=== PATIENT | female | born 1955 | race Caucasian/White ===

== ENCOUNTER 2017-12-06 12:14 | Outpatient (CLI) | payer OTHER | END 2017-12-06 12:15 | disposition home or self-care (01) | LOC: BICMAMMO 12:14 | PROVIDERS: ATTEND Family Medicine | DX: Z12.31 Encounter for screening mammogram for malignant neoplasm of breast (principal) | CPT/HCPCS: 77063; 77067 ==

== ENCOUNTER 2018-07-06 11:27 | Outpatient (CLI) | payer OTHER ==
--- NOTE | 2018-07-06 12:28 | RAD ---
RIGHT HAND THREE VIEWS: History: 62-year-old female with history of right hand pain. FINDINGS: Mild degenerative changes. No fracture or dislocation. IMPRESSION: Degenerative changes without fracture or dislocation. POS: TPC
== END 2018-07-06 11:28 | disposition home or self-care (01) ==
LOC: RAD 11:27
PROVIDERS: ATTEND Family Medicine
DX: M79.641 Pain in right hand (principal); M19.041 Primary osteoarthritis, right hand

== ENCOUNTER 2019-03-29 12:18 | Outpatient (CLI) | payer OTHER ==
--- NOTE | 2019-03-29 12:53 | MMO ---
Bilateral MAMMO Bilat Screen [facility]. CLINICAL HISTORY: Patient is 63 years old and is seen for screening. The patient has no family history of breast cancer. The patient has no personal history of cancer. The patient has a history of bilateral Excisional Biopsy in More than 10 ye - benign. VIEWS: The views performed were: bilateral craniocaudal with tomosynthesis and bilateral mediolateral oblique with tomosynthesis. FILMS COMPARED: The present examination has been compared to prior imaging studies performed at [facility] on 08/30/2014, 10/14/2015, 11/05/2016 and 12/06/2017. MAMMOGRAM FINDINGS: There are scattered fibroglandular densities. There are stable benign appearing calcifications seen in both breasts. There are no suspicious masses, suspicious calcifications, or new areas of architectural distortion. IMPRESSION: THERE IS NO MAMMOGRAPHIC EVIDENCE OF MALIGNANCY. A ROUTINE FOLLOW-UP MAMMOGRAM IN 1 YEAR IS RECOMMENDED. THE RESULTS OF THIS EXAM WERE SENT TO THE PATIENT. ACR BI-RADS Category 2 - Benign finding MAMMOGRAPHY NOTE: 1. A negative mammogram report should not delay a biopsy if a dominant of clinically suspicious mass is present. 2. Approximately 10% to 15% of breast cancers are not detected by mammography. 3. Adenosis and dense breasts may obscure an underlying neoplasm.
== END 2019-03-29 12:19 | disposition home or self-care (01) ==
LOC: BICMAMMO 12:18
PROVIDERS: ATTEND Family Medicine
DX: Z12.31 Encounter for screening mammogram for malignant neoplasm of breast (principal); Z91.89 Other specified personal risk factors, not elsewhere classified
CPT/HCPCS: 77063; 77067

== ENCOUNTER 2019-10-13 20:30 | Outpatient (CLI) | payer MEDICARE, OTHER | END 2019-10-13 20:31 | disposition home or self-care (01) | LOC: SLEEPLAB 20:30 | PROVIDERS: ATTEND Family Medicine | DX: G47.33 Obstructive sleep apnea (adult) (pediatric) (principal); E66.9 Obesity, unspecified; Z68.41 Body mass index [BMI] 40.0-44.9, adult | CPT/HCPCS: 95811 ==

== ENCOUNTER 2020-04-11 14:08 | Outpatient (CLI) | payer MEDICARE, OTHER ==
--- NOTE | 2020-04-11 14:37 | MMO ---
Bilateral MAMMO Bilat Screen [facility]. CLINICAL HISTORY: Patient is 64 years old and is seen for screening. The patient has no family history of breast cancer. The patient has no personal history of cancer. The patient has a history of bilateral Excisional Biopsy in More than 10 ye - benign. VIEWS: The views performed were: bilateral craniocaudal with tomosynthesis and bilateral mediolateral oblique with tomosynthesis. FILMS COMPARED: The present examination has been compared to prior imaging studies performed at [facility] on 10/14/2015, 11/05/2016, 12/06/2017 and 03/29/2019. This study has been interpreted with the assistance of computer-aided detection. MAMMOGRAM FINDINGS: There are scattered fibroglandular densities. There are benign appearing calcifications seen in both breasts. There are no suspicious masses, suspicious calcifications, or new areas of architectural distortion. IMPRESSION: THERE IS NO MAMMOGRAPHIC EVIDENCE OF MALIGNANCY. A ROUTINE FOLLOW-UP MAMMOGRAM IN 1 YEAR IS RECOMMENDED. THE RESULTS OF THIS EXAM WERE SENT TO THE PATIENT. ACR BI-RADS Category 2 - Benign finding MAMMOGRAPHY NOTE: 1. A negative mammogram report should not delay a biopsy if a dominant of clinically suspicious mass is present. 2. Approximately 10% to 15% of breast cancers are not detected by mammography. 3. Adenosis and dense breasts may obscure an underlying neoplasm. Reported by: ALEXA DAILY MD Electonically Signed: [id number]
== END 2020-04-11 14:09 | disposition home or self-care (01) ==
LOC: BICMAMMO 14:08
PROVIDERS: ATTEND Family Medicine
DX: Z12.31 Encounter for screening mammogram for malignant neoplasm of breast (principal); Z91.89 Other specified personal risk factors, not elsewhere classified
CPT/HCPCS: 77063; 77067

== ENCOUNTER 2020-04-19 10:29 | Outpatient (CLI) | payer MEDICARE, OTHER ==
--- NOTE | 2020-04-19 11:34 | RAD ---
XR Hips Bilat 2 View INDICATION: 64-year-old female with bilateral hip pain COMPARISON: October 15, 2015 FINDINGS: Right hip: Very minimal osteophytosis is seen along the margin of the acetabulum, slightly more prono unced than on the prior exam. Mild enthesopathic changes seen off the right greater trochanter. No acute fracture is evident. Small phlebolith is seen within the right hemipelvis. Left hip: There is mild degenerative change of the left hip which is relatively stable to the compari son examination. No acute fracture is evident. IMPRESSION: 1. Minimal to mild progression of osteoarthrosis involving the right hip. Stable osteoarthrosis of th e left hip.
--- NOTE | 2020-04-19 11:35 | RAD ---
EXAM: XR Sacroiliac Joints >=3 View DATE: 04/19/2020 12:00 AM INDICATION: Severe SI joint pain for the last 2-3 months COMPARISON: None. FINDING: No periarticular erosive change is evident. There is mild degenerative change of both SI vandana ints. The sacral arcs are in continuity. No acute fractures evident. Small phleboliths seen within the right hemipelvis. IMPRESSION:Mild SI joint degenerative change.
--- NOTE | 2020-04-19 12:12 | BD ---
BONE DENSITOMETRY: Date: 04/19/2020 HISTORY: Postmenopausal screening. FINDINGS: Lumbar Spine: BMD (g/cm2) L1 0.750 T-Score: -2.2 L2 0.815 T-Score: -1.9 L3 0.777 T-Score: -2.8 L4 0.844 T-Score: -2.0 Total 0.800 T-Score: -2.2 Femoral Neck: 0.559 T-Score: -2.6 Total Femur: 0.815 T-Score: -1.0 IMPRESSION: 1. Bone mineral density of the femoral neck indicates osteoporosis. 2. Bone mineral density of the lumbar spine indicates osteopenia. POS: AH
== END 2020-04-19 10:30 | disposition home or self-care (01) ==
LOC: BICMAMMO 10:29
PROVIDERS: ATTEND Internal Medicine Rheumatology
DX: Z13.820 Encounter for screening for osteoporosis (principal); M25.551 Pain in right hip; M25.552 Pain in left hip; M46.1 Sacroiliitis, not elsewhere classified; M47.898 Other spondylosis, sacral and sacrococcygeal region; M16.0 Bilateral primary osteoarthritis of hip; M81.0 Age-related osteoporosis without current pathological fracture; M85.88 Other specified disorders of bone density and structure, other site; E55.9 Vitamin D deficiency, unspecified; M25.50 Pain in unspecified joint
CPT/HCPCS: 36415; 72202; 73521; 77080; 80053; 81374; 82306; 83520; 83970; 84550; 85025; 85652; 86140; 86200; 86225; 86235; 86256; 86334

== ENCOUNTER 2020-09-24 08:08 | Outpatient (CLI) | payer MEDICARE, OTHER ==
--- NOTE | 2020-09-24 09:04 | CT ---
CT abdomen and pelvis with IV and oral contrast HISTORY: Abdominal pain. Diarrhea. COMPARISON: 12/04/2016. FINDINGS: Lung bases are clear. The gallbladder is surgically absent. The liver, spleen, kidneys, adr enal glands, and pancreas have a normal CT appearance. No enlarged lymph nodes or free fluid. No evidence of bowel obstruction or inflammation. The appendix and uterus are surgically absent. There is calcification throughout the arterial structures. Mild degenerative changes lumbar spine and hips. IMPRESSION : No acute abnormalities are demonstrated. Atherosclerosis.
[2020-09-24] MEDS ORDERED: Iopamidol 370 76% 100 ML VIAL ONE (09:38)
== END 2020-09-24 08:09 | disposition home or self-care (01) ==
LOC: BICCT 08:08
PROVIDERS: ATTEND Internal Medicine Gastroenterology
DX: R10.12 Left upper quadrant pain (principal); R19.7 Diarrhea, unspecified; R19.4 Change in bowel habit; K85.90 Acute pancreatitis without necrosis or infection, unspecified; I70.90 Unspecified atherosclerosis; Z86.010 Personal history of colon polyps
CPT/HCPCS: 74177; 82565; Q9967

== ENCOUNTER 2021-10-28 13:11 | Emergency (ER) | payer MEDICARE ==
[2021-10-28] MEDS ORDERED: Acetaminophen 500 MG TAB ONE (15:37)
[2021-10-28] MEDS ORDERED: Ibuprofen 800 MG TAB ONE (15:37)
[2021-10-28 20:38] LABS: SARS-CoV-2 PCR by NAA DETECTED (NotDetected)
== END 2021-10-28 15:59 | disposition home or self-care (01) ==
LOC: ERS 13:11
DX: U07.1 COVID-19 (principal); K21.9 Gastro-esophageal reflux disease without esophagitis; K58.9 Irritable bowel syndrome, unspecified; E78.5 Hyperlipidemia, unspecified; I10 Essential (primary) hypertension; Z87.891 Personal history of nicotine dependence
CPT/HCPCS: 99283; U0003; U0005

== ENCOUNTER 2021-12-02 12:04 | Outpatient (CLI) | payer MEDICARE | END 2021-12-02 12:05 | disposition home or self-care (01) | LOC: BICRAD 12:04 | PROVIDERS: ATTEND Family Medicine | DX: U07.1 COVID-19 (principal); J12.82 Pneumonia due to coronavirus disease 2019; R91.8 Other nonspecific abnormal finding of lung field | CPT/HCPCS: 71046 ==

== ENCOUNTER 2022-05-13 07:56 | Outpatient (CLI) | payer MEDICARE | END 2022-05-13 07:57 | disposition home or self-care (01) | LOC: BICMAMMO 07:56 | PROVIDERS: ATTEND Family Medicine | DX: Z12.31 Encounter for screening mammogram for malignant neoplasm of breast (principal); Z91.89 Other specified personal risk factors, not elsewhere classified | CPT/HCPCS: 77063; 77067 ==

== ENCOUNTER 2023-05-19 10:55 | Outpatient (CLI) | payer MEDICARE | END 2023-05-19 10:56 | disposition home or self-care (01) | LOC: BICMRI 10:55 | PROVIDERS: ATTEND Anesthesiology Pain Medicine | DX: M47.22 Other spondylosis with radiculopathy, cervical region (principal); Z98.1 Arthrodesis status | CPT/HCPCS: 72141 ==

== ENCOUNTER 2023-07-01 09:04 | Outpatient (CLI) | payer MEDICARE | END 2023-07-01 09:05 | disposition home or self-care (01) | LOC: ULT 09:04 | PROVIDERS: ATTEND Internal Medicine | DX: I73.9 Peripheral vascular disease, unspecified (principal); I50.32 Chronic diastolic (congestive) heart failure; R09.89 Other specified symptoms and signs involving the circulatory and respiratory systems; I70.90 Unspecified atherosclerosis | CPT/HCPCS: 76770; 93306; 93923; 93975 ==

== ENCOUNTER 2023-08-09 13:34 | Outpatient (CLI) | payer MEDICARE | END 2023-08-09 13:35 | disposition home or self-care (01) | LOC: BICULT 13:34 | PROVIDERS: ATTEND Internal Medicine | DX: G45.9 Transient cerebral ischemic attack, unspecified (principal); R55 Syncope and collapse | CPT/HCPCS: 93880 ==

== ENCOUNTER 2024-07-10 08:20 | Outpatient (CLI) | payer MEDICARE | END 2024-07-10 08:21 | disposition home or self-care (01) | LOC: BICMAMMO 08:20 | PROVIDERS: ATTEND Family Medicine | DX: Z12.31 Encounter for screening mammogram for malignant neoplasm of breast (principal); Z91.89 Other specified personal risk factors, not elsewhere classified | CPT/HCPCS: 77063; 77067 ==

== ENCOUNTER 2024-08-12 08:49 | Inpatient (IN) | payer MEDICARE ==
[2024-08-12 10:21] LABS: #Basophils 0.03 10x3/uL (0.0-0.2); %Basophils 0.3 % (0.0-1.0); %Eosinophils 1.1 % (0.0-10.0); %Lymphocytes 20.7 % (21.0-51.0); %Monocytes 11.1 % (0.0-10.0); %Neutrophils 66.5 % (42.0-75.0); Hematocrit 43.8 % (36.0-47.0); Mean Corpuscular Hemoglobin 32.3 pg (27.0-31.0); Mean Corpuscular Volume 101.2 fL (78.0-98.0); Mean Platelet Volume 10.1 fL (7.4-10.4); Platelet Count 174 10x3/uL (130-400); Red Blood Cell (RBC) Count 4.33 mill/uL (4.20-5.40)
[2024-08-12 10:46] LABS: ALT (SGPT) 24 U/L (8-55); AST (SGOT) 23 U/L (5-34); Alkaline Phosphatase 45 U/L (40-110); Anion Gap 20 mmol/L (10-20); BUN (Urea Nitrogen) 37 mg/dL (9.8-20.1); Bilirubin, Total 0.6 mg/dL (0.2-1.2); Calc. Creatinine Clearance 0 mL/min (70-130); Calcium 9.8 mg/dL (7.8-10.44); Carbon Dioxide 22 mmol/L (23-31); Chloride 99 mmol/L (98-107); Estimated GFR 30; Globulin 3.3 g/dL (2.4-3.5); Glucose 95 mg/dL (80-115); Potassium 3.2 mmol/L (3.5-5.1); Protein, Total 7.3 g/dL (5.8-8.1); Sodium 138 mmol/L (136-145)
[2024-08-12 11:05] LABS: Troponin I Less than 0.010 ng/mL (< 0.028)
[2024-08-12] MEDS ORDERED: Acetaminophen 500 MG TAB ONE (11:50)
[2024-08-12] MEDS ORDERED: Potassium Chloride 20 MEQ TAB ONE (11:50)
[2024-08-12] MEDS ORDERED: Ondansetron PF 4 MG/2 ML Vial ONE (11:51)
[2024-08-12] MEDS ORDERED: Ondansetron PF 4 MG/2 ML Vial IVP PRN (12:59)
[2024-08-12] MEDS ORDERED: Nicotine 14 MG PATCH TD PRN (12:59)
[2024-08-12] MEDS ORDERED: Albuterol 2.5 MG (3 mL) NEB NEB PRN (12:59)
[2024-08-12 13:39] VITALS: BMI 39.7
[2024-08-12] MEDS: Acetaminophen 325 MG TAB PO PRN (15:40)
[2024-08-12] MEDS: Carvedilol 6.25 MG TAB PO SCH (16:30)
[2024-08-12] MEDS: Pantoprazole DR 40 MG TAB PO SCH (20:48)
[2024-08-12] MEDS: Rosuvastatin 20 MG TAB PO SCH (20:48)
[2024-08-12] MEDS: Cholestyramine/Aspartame 4 gm Packet PO SCH (21:00)
[2024-08-13 04:38] LABS: #Basophils Less than 0.03 10x3/uL (0.0-0.2); %Basophils 0.3 % (0.0-1.0); %Eosinophils 1.4 % (0.0-10.0); %Lymphocytes 37.6 % (21.0-51.0); %Monocytes 13.8 % (0.0-10.0); %Neutrophils 46.6 % (42.0-75.0); Hematocrit 41.5 % (36.0-47.0); Hemoglobin 13.5 g/dL (12.0-16.0); Mean Corpuscular HGB CONC 32.5 g/dL (32.0-36.0); Mean Corpuscular Hemoglobin 32.3 pg (27.0-31.0); Mean Corpuscular Volume 99.3 fL (78.0-98.0); Mean Platelet Volume 10.2 fL (7.4-10.4); Platelet Count 186 10x3/uL (130-400); RBC Distribution Width 14.4 % (11.5-14.5); Red Blood Cell (RBC) Count 4.18 mill/uL (4.20-5.40)
[2024-08-13 05:03] LABS: Anion Gap 11 mmol/L (10-20); BUN (Urea Nitrogen) 31 mg/dL (9.8-20.1); Calc. Creatinine Clearance 54 mL/min (70-130); Calcium 9.2 mg/dL (7.8-10.44); Carbon Dioxide 29 mmol/L (23-31); Chloride 103 mmol/L (98-107); Estimated GFR 34; Glucose 117 mg/dL (80-115); Potassium 3.9 mmol/L (3.5-5.1); Sodium 139 mmol/L (136-145)
[2024-08-13] MEDS: Aspirin 81 mg Enteric Coated Tablet PO SCH (08:24)
[2024-08-13] MEDS: Magnesium Oxide 400 MG TAB PO SCH (08:24)
[2024-08-13] MEDS: Empagliflozin 25 MG TAB PO SCH (11:16)
[2024-08-13] MEDS: Spironolactone 25 MG TAB PO SCH (11:16)
[2024-08-13] MEDS: Lorazepam 2 MG/ML VIAL SLOW IVP SCH (11:23)
[2024-08-13 14:56] VITALS: BP 113/58; TEMP 98.2
[2024-08-14] MEDS ORDERED: Spironolactone 25 MG TAB PO SCH (08:00)
[2024-08-14] MEDS ORDERED: Empagliflozin 25 MG TAB PO SCH (09:00)
== END 2024-08-13 16:02 | disposition home or self-care (01) | DRG 683 ==
LOC: ERS 08:49 → 2NO 13:16
PROVIDERS: ADMIT Hospitalist; ATTEND Internal Medicine
DX: N17.9 Acute kidney failure, unspecified (principal); I13.0 Hypertensive heart and chronic kidney disease with heart failure and stage 1 through stage 4 chronic kidney disease, or unspecified chronic kidney disease; I50.32 Chronic diastolic (congestive) heart failure; E87.6 Hypokalemia; I44.0 Atrioventricular block, first degree; E78.5 Hyperlipidemia, unspecified; N18.30 Chronic kidney disease, stage 3 unspecified; K21.9 Gastro-esophageal reflux disease without esophagitis; Z90.49 Acquired absence of other specified parts of digestive tract; Z88.0 Allergy status to penicillin; Z79.82 Long term (current) use of aspirin; Z79.899 Other long term (current) drug therapy; Z90.710 Acquired absence of both cervix and uterus
CPT/HCPCS: 36415; 36416; 70450; 70544; 70551; 71045; 80048; 80053; 83880; 84443; 84484; 85025; 93005; 93306; 93880; 96374; J2060; J2405